=== PATIENT | male | born 1965 | race Caucasian/White ===

== ENCOUNTER → 2017-06-27 03:43 | Emergency (ER) | payer BC ==
[~2017-06-27 03:43] MED LIST: Aspirin Low Dose CHEW TAB* 81 MG PO ONE; NS 0.9% 1000 ML* 1,000 ML IV ONE
[2017-06-27 04:58] LABS: Hematocrit 42 % (42-52); Mean Corpuscular HGB Conc 34 g/dl (31-36); Mean Corpuscular Hemoglobin 30 pg (27-31); Mean Corpuscular Volume 88 fL (80-94); Mean Platelet Volume 10 um3 (7.4-10.4); Red Cell Distribution Width 14 % (10.5-15); White Blood Count 7.8 10^3/ul (3.5-10.8)
[2017-06-27 05:12] LABS: Albumin 3.9 g/dL (3.2-5.2); BUN/Creatinine Ratio 20.2 (8-20); EGFR African American 109.2 (>60); EGFR Non-African American 84.9 (>60); Globulin 2.5 g/dL (2-4); Total Bilirubin 0.8 mg/dL (0.2-1.0); Total Protein 6.4 g/dL (6.4-8.9)
[2017-06-27 06:46] VITALS: BP 135/84
--- NOTE | 2017-06-27 09:55 | RAD ---
Indication: Dizziness. Sweating. Generalized illness. Comparison: No relevant prior exams available on the [facility] [place] for comparison. Technique: Upright AP 0420 hours Report: Mild airspace consolidation at the LEFT lung base. Negative for volume loss to favor atelectasis. Negative for pleural effusion or pneumothorax. The heart, pulmonary vasculature, and mediastinal contours are unremarkable. IMPRESSION: Airspace consolidation at the LEFT lung base is suspicious for pneumonia.
--- NOTE | 2017-07-09 15:38 | ED ---
Carlos Vincent Thomas, scribed for Tomer Robbins MD on 06/27/17 at 0455 . Dizziness - HPI Summary HPI Summary: The pt is a 52 y/o M presenting to the ED c/o leg cramps, diaphoresis, lightheadedness, and nausea s/p waking up to go to the bathroom at 03:25. The lightheadedness is aggravated and alleviated by nothing. 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 Pt additionally c/o minor HARRELL. Pt denies CP, SOB, difficulty breathing, myalgia, sore throat, rhinorrhea, cough, and nasal congestion. He denies any symptoms of a cold recently. He has not taken any medications today. He is not on any daily medications. PMHx: previously healthy. PSHx: none. SHx: no smoking, daily alcohol use, no illicit drug use. FHx: negative for CAD. He had three beers yesterday at 18:00, which is normal for him. The patient is accompanied by his . 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 Negative: Chest Pain, SOB, Fever, Chills - Allergies/Home Medications Allergies/Adverse Reactions: Allergies Allergy/AdvReac Type Severity Reaction Status Date / Time Codeine Allergy Vomiting Verified 06/27/17 03:50 PMH/Surg Hx/FS Hx/Imm Hx Previously Healthy: No Cardiovascular History: Denies: Hx Myocardial Infarction Sensory History: Denies: Hx Deafness - Surgical History Surgery Procedure, Year, and Place: None Infectious Disease History: No Infectious Disease History: Denies: Traveled Outside the [place] in Last 30 Days - Family History Known Family History: Negative: Cardiac Disease - Social History Alcohol Use: Daily Hx Substance Use: No Substance Use Type: Reports: None Hx Tobacco Use: No Smoking Status (MU): Never Smoked Tobacco Review of Systems Positive: Skin Diaphoresis. Negative: Fever, Chills Negative: Erythema Negative: Sore Throat, Nasal Discharge, Other - NEG: nasal congestion Negative: Chest Pain Negative: Shortness Of Breath, Cough, Other - NEG: difficulty breathing Positive: Nausea. Negative: Abdominal Pain, Vomiting Negative: dysuria, hematuria Positive: Other - POS: leg cramps. Negative: Myalgia, Edema - legs Negative: Rash Neurological: Other - POS: lightheadedness; NEG: dizziness Positive: Headache All Other Systems Reviewed And Are Negative: Yes Physical Exam Vital Signs On Initial Exam: Initial Vitals Temp Pulse Resp BP Pulse Ox 97.6 F 72 16 135/79 97 06/27/17 03:45 06/27/17 03:45 06/27/17 03:45 06/27/17 03:45 06/27/17 03:45 Diagnostics - Vital Signs Vital Signs Temp Pulse Resp BP Pulse Ox 06/27/17 04:19 98 F 72 14 133/78 98 06/27/17 03:45 97.6 F 72 16 135/79 97 - Laboratory Result Diagrams: 06/27/17 04:45 06/27/17 04:45 Lab Statement: Any lab studies that have been ordered have been reviewed, and results considered in the medical decision making process. - Radiology CXR Xray Interpretation: No Acute Changes - No acute disease Radiology Interpretation Completed By: ED Physician - EKG 03:54 Cardiac Rate: NL - 66 BPM EKG Interpretation: Sinus rhythm. No Ectopy. No STEMI. Dizzy Course/Dx - Course Assessment/Plan: The pt is a 52 y/o M presenting to the ED c/o leg cramps, diaphoresis, lightheadedness, and nausea s/p waking up to go to the bathroom at 03:25. The lightheadedness is aggravated and alleviated by nothing. 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 Pt additionally c/o minor HARRELL. Pt denies CP, SOB, difficulty breathing, myalgia, sore throat, rhinorrhea, cough, and nasal congestion. He denies any symptoms of a cold recently. He has not taken any medications today. He is not on any daily medications. PMHx: previously healthy. PSHx: none. SHx: no smoking, daily alcohol use, no illicit drug use. FHx: negative for CAD. He had three beers yesterday at 18:00, which is normal for him. The patient is accompanied by his . In the ED course the patient was given ASA and IV fluids. CXR shows no acute disease. EKG shows sinus rhythm with no STEMI and no ectopy. Two troponins are negative. He was overexerting himself while lying on the floor. He reports no fluid intake recently. He is diagnosed with dehydration and dizziness. He will follow up with his primary care provider in 2-3 days. - Diagnoses Provider Diagnoses: Dehydration, Dizziness Discharge - Discharge Plan Condition: Stable Disposition: HOME Patient Education Materials: Dehydration (ED), Dizziness (ED) Referrals: Remigio Orozco MD [Primary Care Provider] - 2 Days Additional Instructions: Follow up with Dr. Orozco in 2-3 days. Return to the emergency department if you develop any changing or worsening symptoms. The documentation as recorded by the Carlos castillo Thomas accurately reflects the service I personally performed and the decisions made by , Tomer Robbins MD.
== END | disposition home or self-care (01) ==
LOC: ED 03:43
DX: E86.0 Dehydration (principal); R42 Dizziness and giddiness; R11.0 Nausea
CPT/HCPCS: 36415; 71010; 80053; 83605; 84484; 85025; 93005; 96360; 99283; A9270-GY

== ENCOUNTER 2019-01-06 14:10 | Observation (INO) | payer BC ==
[2019-01-06 18:55] LABS: ABS Basophils 0.1 10^3/ul (0-0.2); ABS Eosinophils 0.3 10^3/ul (0-0.6); ABS Lymphocytes 1.7 10^3/ul (1.0-4.8); ABS Monocytes 0.7 10^3/ul (0-0.8); ABS Neutrophils 5.7 10^3/ul (1.5-7.7); ABS Nucleated RBC 0 10^3/ul; Eosinophil % 3.1 %; Hematocrit 43 % (36-46); Hemoglobin 14.5 g/dL (14.0-18.0); Lymphocyte % 20.5 %; Mean Corpuscular HGB Conc 34 g/dL (31-36); Mean Corpuscular Hemoglobin 30 pg (27-31); Mean Corpuscular Volume 88 fL (80-94); Mean Platelet Volume 9.6 fL (7.4-10.4); Nucleated Red Blood Cells % 0; Platelet Count 194 10^3/uL (150-450); Red Blood Count 4.85 10^6 /uL (4.18-5.48); Red Cell Distribution Width 14 % (10.5-15); White Blood Count 8.5 10^3/uL (3.5-10.8)
--- NOTE | 2019-01-06 18:59 | ED ---
Throat Pain/Nasal Congestion - HPI Summary HPI Summary: A 53 y/o M [place] [facility] [place] to ED with c/o blurred vision onset approx 11:30a and lasting for 45 minutes. 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 He looked with each eye individually, and it was occurring bilaterally and in the middle of his field of vision. He describes the blurriness as opaqueness, as seeing "lightning bolts." Associated sx: diaphoresis but he feels that was from cooking. Denies eye pain, HARRELL, weakness, dizziness, confusion, changes in speech. He went to the eye doctor last week. He denies neurological history ( seizures, convulsions.) Takes allergy medications. - History of Current Complaint Chief Complaint: EDEyeProblem Time Seen by Provider: 01/06/19 18:54 Hx Obtained From: Patient Onset/Duration: Sudden Onset, Lasting Minutes - ~ 45 mins, Resolved Severity: Moderate - Allergies/Home Medications Allergies/Adverse Reactions: Allergies Allergy/AdvReac Type Severity Reaction Status Date / Time codeine Allergy Vomiting Verified 01/06/19 18:59 Home Medications: Home Medications Loratadine/Pseudoephedrine [Claritin-D 24 Hour 10-240 mg] 1 tab PO DAILY PRN [History Confirmed 01/06/19] PMH/Surg Hx/FS Hx/Imm Hx Previously Healthy: Yes Cardiovascular History: Denies: Hx Myocardial Infarction Sensory History: Denies: Hx Deafness Neurological History: Denies: Hx Seizures - Surgical History Surgery Procedure, Year, and Place: None Infectious Disease History: No Infectious Disease History: Denies: Traveled Outside the [place] in Last 30 Days - Family History Known Family History: Negative: Cardiac Disease - Social History Occupation: Employed Part-time, Retired Lives: With Family Alcohol Use: Daily Hx Substance Use: No Substance Use Type: Reports: None Hx Tobacco Use: No Smoking Status (MU): Never Smoked Tobacco Review of Systems Positive: Skin Diaphoresis. Negative: Fever Eyes: Other - neg: eye pain Positive: Blurred Vision Neurological: Other - neg: dizziness, confusion Negative: Headache, Weakness, Slurred Speech All Other Systems Reviewed And Are Negative: Yes Physical Exam - Summary Physical Exam Summary: Appearance: Well-appearing, Well-nourished, lying in bed comfortably Skin: Warm, dry, no obvious rash Eyes: sclera anicteric, no conjunctival pallor ENT: mucous membranes moist, pharynx appears normal Neck: Supple, nontender Respiratory: Clear to auscultation, no signs of respiratory distress Cardiovascular: Normal S1, S2. No murmurs. Normal distal pulses in tibial and radial bilaterally. Abdomen: Soft, nontender, normal active bowel sounds present Musculoskeletal: Normal, Strength/ROM Intact, Motor function in all 4 extremities is normal and symmetric. There is no rigidity or tremor noted. Neurological: A&Ox3, awake and alert, mentation is normal, speech is fluent and appropriate, Level of consciousness nml. The patient is alert and oriented. Cranial nerves are grossly intact. Gaze is conjugate and without nystagmus. Peripheral vision is intact to confrontation. There are no gross sensory abnormalities to light touch. There is no truncal or fine motor ataxia. Gait is normal. Psychiatric: affect is normal, does not appear anxious or depressed Triage Information Reviewed: Yes Vital Signs On Initial Exam: Initial Vitals Temp Pulse Resp BP Pulse Ox 97.8 F 82 18 141/89 99 01/06/19 14:14 01/06/19 14:14 01/06/19 14:14 01/06/19 14:14 01/06/19 14:14 Vital Signs Reviewed: Yes - Chavo Coma Scale Best Eye Response: 4 - Spontaneous Best Motor Response: 6 - Obeys Commands Best Verbal Response: 5 - Oriented Coma Scale Total: 15 Diagnostics - Vital Signs Vital Signs Temp Pulse Resp BP Pulse Ox 01/06/19 18:20 98.2 F 71 18 140/95 98 01/06/19 15:57 98.1 F 79 17 122/89 97 01/06/19 14:14 97.8 F 82 18 141/89 99 - Laboratory Lab Results: Lab Results 01/06/19 Range/Units 18:48 WBC 8.5 (3.5-10.8) 10^3/uL RBC 4.85 (4.18-5.48) 10^6 /uL Hgb 14.5 (14.0-18.0) g/dL Hct 43 (36-46) % MCV 88 (80-94) fL MCH 30 (27-31) pg MCHC 34 (31-36) g/dL RDW 14 (10.5-15) % Plt Count 194 (150-450) 10^3/uL MPV 9.6 (7.4-10.4) fL Neut % (Auto) 67.3 % Lymph % (Auto) 20.5 % Williamson % (Auto) 8.2 % Eos % (Auto) 3.1 % Baso % (Auto) 0.9 % Absolute Neuts (auto) 5.7 (1.5-7.7) 10^3/ul Absolute Lymphs (auto) 1.7 (1.0-4.8) 10^3/ul Absolute Monos (auto) 0.7 (0-0.8) 10^3/ul Absolute Eos (auto) 0.3 (0-0.6) 10^3/ul Absolute Basos (auto) 0.1 (0-0.2) 10^3/ul Absolute Nucleated RBC 0 10^3/ul Nucleated RBC % 0 Result Diagrams: 01/06/19 18:48 01/06/19 18:48 Lab Statement: Any lab studies that have been ordered have been reviewed, and results considered in the medical decision making process. - CT BRAIN CT Interpretation Completed By: Radiologist Summary of CT Findings: IMPRESSION: NO ACUTE INTRACRANIAL PATHOLOGY. ED provider has reviewed this report. HEAD CTA CT Interpretation Completed By: Radiologist Summary of CT Findings: IMPRESSION: No acute findings. ED provider has reviewed this report. - EKG 1647 Cardiac Rate: NL - 73 bpm EKG Rhythm: Sinus Rhythm ST Segment: Normal Ectopy: None Summary of EKG Findings: NSR at 73 BPM, P waves, QRS complex, and T waves are within normal limits, T waves and intervals are normal, no ischemic changes. Re-Evaluation - Re-Evaluation 1 Re-Evaluation Time: 19:18 Change: Unchanged 2 Re-Evaluation Time: 19:34 Change: Unchanged Comment: Discussing consult with Dr. Diaz, neuro. 3 Re-Evaluation Time: 21:30 Change: Unchanged Comment: Discussing CTA results with pt. EENT Course/Dx - Course Assessment/Plan: Pt is a 53 y/o M presenting with episode of blurred vision onset approx 11:30am, lasting for 45 minutes. 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 He looked with each eye individually, and it was occurring bilaterally and in the middle of his field of vision. Denies eye pain, HARRELL, weakness, dizziness, confusion, changes in speech. He went to the eye doctor last week. He denies neurological history (seizures, convulsions.) Medications discussed. Labs are within normal limits. EKG is NSR. Brain CT shows no acute intracranial pathology. Head CTA shows no acute findings. UA results show elevated specific gravity, 1+ blood and squamous epithelia present. Consulted with Dr. Diaz, neuro, who says dx is unclear, assume TIA. Consulted with Dr. Pan, hospitalist, who will admit patient. - Diagnoses Provider Diagnoses: Transient ischemic attack - Provider Notifications Discussed Care Of Patient With: Ingrid Diaz - neuro Time Discussed With Above Provider: 19:14 Instructed by Provider To: Other - Diagnosis unclear, for now assume TIA. Discharge - Sign-Out/Discharge Documenting (check all that apply): Patient Departure - D/C Patient Received Moderate/Deep Sedation with Procedure: No - Discharge Plan Condition: Fair Disposition: ADMITTED TO [facility] Referrals: Remigio Orozco MD [Primary Care Provider] - - Billing Disposition and Condition Condition: FAIR Disposition: Admitted to [facility] - Attestation Statements Document Initiated by Scribe: Yes Documenting Scribe: Sage Robles Provider For Whom Horace is Documenting (Include Credential): Dr. Ty Stephenson MD Scribe Attestation: Sage Vincent, scribed for Dr. Ty Stephenson MD on 01/07/19 at 0229. Scribe Documentation Reviewed: Yes Provider Attestation: The documentation as recorded by the Sage castillo accurately reflects the service I personally performed and the decisions made by me, Dr. Ty Stephenson MD Status of Scribe Document: Viewed Consult Consult: 2134: Consulted with Dr. Pan, hospitalist Will admit patient.
[2019-01-06 19:19] LABS: Albumin 4.2 g/dL (3.2-5.2); Albumin/Globulin Ratio 1.7 (1-3); BUN/Creatinine Ratio 18.9 (8-20); Calcium 9.1 mg/dL (8.6-10.3); EGFR African American 107.6 (>60); Globulin 2.5 g/dL (2-4); Potassium 4.3 mmol/L (3.5-5.0); Total Bilirubin 0.6 mg/dL (0.2-1.0); Total Protein 6.7 g/dL (6.4-8.9)
[2019-01-06 19:20] LABS: Activated Partial Thrombo Time 32.1 seconds (26.0-36.3); INR 0.98 (0.77-1.02)
[2019-01-06] MEDS ORDERED: Iohexol 350* (CONTRAST) 500 ML MDV IV ONE (19:51)
[2019-01-06] MEDS ORDERED: Aspirin 81 mg CHEW TAB* 81 MG TAB.CHEW PO ONE (21:38)
[2019-01-06 21:55] LABS: Urine Appearance Clear; Urine Bacteria Absent (Absent); Urine Bilirubin Negative (Negative); Urine Blood 1+ (Negative); Urine Color Yellow; Urine Glucose Negative (Negative); Urine Ketones Negative (Negative); Urine Nitrite Negative (Negative); Urine Protein Negative (Negative); Urine Red Blood Cell Trace(0-2/hpf) (Absent); Urine Specific Gravity > 1.060 (1.010-1.030); Urine Squamous Epithelial Cell Present (Absent); Urine Urobilinogen Negative (Negative); Urine White Blood Cell Absent (Absent)
[2019-01-07] MEDS ORDERED: Acetaminophen TAB* 325 MG PO PRN (03:40)
[2019-01-07 03:57] LABS: HDL Cholesterol 37.8 mg/dL
--- NOTE | 2019-01-07 06:28 | HP ---
CC: Dr. Orozco * HISTORY AND PHYSICAL: DATE OF ADMISSION: 01/07/19 TIME OF EVALUATION: 3:30 a.m. PRIMARY CARE PROVIDER: Dr. Orozco. CHIEF COMPLAINT: "I had blurry vision." HISTORY OF PRESENT ILLNESS: Mr. Yancey is a 53-year-old male with a past medical history of obesity and seasonal allergies, who presents to the emergency room with complaints of visual change. 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 He covered each eye and both eyes were doing the same thing. He denies headache, nausea, vomiting, chest pain, palpitations, any other focal weakness or sensory loss. He went to [facility] initially and then came to the emergency room. He states the whole episode lasted 45 minutes. He vision returned to normal, and he has had no recurrent symptoms. He denies any prior episodes like this. PAST MEDICAL HISTORY: 1. Seasonal allergies. 2. Obesity with a BMI of 46. MEDICATION: Loratadine-D 1 tablet p.o. daily as needed for allergies. ALLERGIES: No known drug allergies. FAMILY HISTORY: The patient's mother was a smoker and of cancer. His father is alive and has a history of COPD. SOCIAL HISTORY: The patient denies a history of tobacco or drug use. He says occasionally he drinks beer. Surrogate decision maker is his , Jaelyn Yancey , phone number is [phone]. REVIEW OF SYSTEMS: A 14-point review of systems was performed. All the pertinent negative and positive findings are in the HPI. PHYSICAL EXAMINATION GENERAL: The patient is a pleasant, obese, middle aged gentleman, lying in bed , in no acute distress. VITAL SIGNS: Temperature 98.2, heart rate is 77, respiratory rate is 18, oxygen saturation is 97% on room air, blood pressure is 138/81. HEENT: Pupils are equal, reactive to light. Extraocular movements are intact. Moist mucous membranes. CHEST: Breath sounds are present bilaterally with no added sounds. CVS: S1 and S2. Regular rate and rhythm. ABDOMEN: Obese. Bowel sounds are present. EXTREMITIES: No edema. NEUROLOGIC: He is alert and oriented x3. Cranial nerves are II through XII are grossly intact. Able to move all 4 extremities with strength 5/5 in all 4. Sensation is intact. LABORATORY AND IMAGING DATA: The patient had a CBC that showed WBC of 8.5, hemoglobin of 14.5, hematocrit of 43, platelets of 195. INR is 0.8. Chemistry showed a sodium of 138, potassium 4.3, chloride of 104, bicarb of 29, BUN 17, creatinine of 0.9, glucose of 95, calcium 9.1. LFTs are normal. Troponin was 0. Urinalysis showed 1+ blood and squamous epithelial cells. CT of the brain without contrast showed no acute intracranial pathology. CTA of the head and neck showed no acute findings. EKG done on 01/06/19 at 1647 shows sinus rhythm at 73 beats per minute with no ST-T changes. No significant change when compared to his prior EKG from . ASSESSMENT AND PLAN: Mr. Yancey is a 53-year-old gentleman with past medical history of obesity and seasonal allergies, who presented to the emergency room after 45 minutes of visual changes. 1. Visual changes. The emergency room provider discussed the case with Neurology and there is a concern for a TIA. The way the patient describes the symptoms is very peculiar in what he says there was bilateral visual change in a sense that he could read the cards but it felt like he was skipping a line. The patient will be admitted as observation to the telemetry floor. I am going to check his lipid profile. I am going to order an echocardiogram and neurology consultation was requested with Dr. Diaz. He will be monitored with neuro checks, but at the time of my evaluation, he has no neurological deficits. He received an aspirin in the emergency room and we will continue that. 2. DVT prophylaxis: The patient has a score of 2 on the DVT prophylaxis risk assessment guide and he will have SCDs while in bed. 3. Code status is full. TIME SPENT: Approximately 45 minutes was spent on patient interview, medical records review, physical examination to complete the admission; more than half the time spent [id number] with the patient and coordination of care. [id number]/CPS #: [id number] KIERAN
[2019-01-07] MEDS: Aspirin EC TAB* 81 MG TAB.EC PO SCH (08:09)
--- NOTE | 2019-01-07 11:28 | PN ---
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 States that this occurred with both eyes for appx 45 minutes. He went to [facility], where symptoms disappeared without intervention. He was then sent to ER for work up. Here, he continues to be asymptomatic. Pt states that he has no PMHx, except allergies and obesity. He notes that he recently traveled via airplane from [place]. Currently without vision changes; had recent eye doctor appointment and was cleared. Denies CP, SOB, palpitations. Objective Active Medications: Acetaminophen (Tylenol Tab*) 650 mg PO Q6H PRN Aspirin (Aspirin Ec Tab*) 81 mg PO DAILY STARR Vital Signs: Temp Pulse Resp BP Pulse Ox 97.4 F 73 16 134/71 97 01/07/19 15:45 01/07/19 15:45 01/07/19 15:45 01/07/19 15:45 01/07/19 15:45 Oxygen Devices in Use Now: None Appearance: Pt is sitting up in bed. He appears well and in no acute distress. Eyes: No Scleral Icterus, PERRLA Ears/Nose/Mouth/Throat: NL Teeth, Lips, Gums, Clear Oropharnyx, Mucous Membranes Moist, - - Tongue midline Neck: NL Appearance and Movements; NL JVP, Trachea Midline Respiratory: Symmetrical Chest Expansion and Respiratory Effort, Clear to Auscultation Cardiovascular: NL Sounds; No Murmurs; No JVD, RRR, No Edema, - - Tele: RRR Abdominal: NL Sounds; No Tenderness; No Distention, No Hepatosplenomegaly Lymphatic: No Cervical Adenopathy Extremities: No Edema, No Clubbing, Cyanosis, - - RLE with fluid at anterior knee. Neurological: Alert and Oriented x 3, NL Muscle Strength and Tone Result Diagrams: 01/06/19 18:48 01/06/19 18:48 Additional Lab and Data: Lab Results 01/06/19 Range/Units 18:48 WBC 8.5 (3.5-10.8) 10^3/uL RBC 4.85 (4.18-5.48) 10^6 /uL Hgb 14.5 (14.0-18.0) g/dL Hct 43 (36-46) % MCV 88 (80-94) fL MCH 30 (27-31) pg MCHC 34 (31-36) g/dL RDW 14 (10.5-15) % Plt Count 194 (150-450) 10^3/uL MPV 9.6 (7.4-10.4) fL Neut % (Auto) 67.3 % Lymph % (Auto) 20.5 % [place] % (Auto) 8.2 % Eos % (Auto) 3.1 % Baso % (Auto) 0.9 % Absolute Neuts (auto) 5.7 (1.5-7.7) 10^3/ul Absolute Lymphs (auto) 1.7 (1.0-4.8) 10^3/ul Absolute Monos (auto) 0.7 (0-0.8) 10^3/ul Absolute Eos (auto) 0.3 (0-0.6) 10^3/ul Absolute Basos (auto) 0.1 (0-0.2) 10^3/ul Absolute Nucleated RBC 0 10^3/ul Nucleated RBC % 0 Assess/Plan/Problems-Billing Assessment: 53yom with PMHx seasonal allergies, obesity who presents with b/l blurred vision. - Patient Problems (1) Blurred vision Comment: -Symptoms resolved without return; Head CT WNL, Head/neck CTA with no acute findings -Neurology consulted; thank you for recommendations -US b/l LE and ECHO pending (2) Hyperlipidemia Comment: -LDL elevated to 115; discussed use of statin medication for lowering of LDL. Pt decided to defer for now and discuss with PCP on follow-up after discharge (3) Knee swelling Comment: -Swelling at anterior knee RLE occurred after kneeling for extended period -Likely prepatellar bursitis- Tylenol ordered prn pain (4) DVT prophylaxis Comment: -Heparin SQ ordered (5) Full code status Status and Disposition: Observation. Discharge when stable.
[2019-01-07 15:42] LABS: Activated Partial Thrombo Time 31.4 seconds (26.0-36.3); INR 0.96 (0.77-1.02)
--- NOTE | 2019-01-07 16:15 | CONS ---
CC: Dr. Orozco CONSULTATION REPORT: DATE OF CONSULT: 01/07/19 REASON FOR CONSULT: Bilateral vision loss. HISTORY OF PRESENT ILLNESS: Tank Yancey is a 53-year-old right-handed gentleman with remote histo ry of bilateral severe headaches, now presents with 45 minutes of bilateral vision changes. He is re tired; however, tells me he works 3 jobs and was working his job as a part-time cook at a diner yeste rday when he developed vision changes. When he was trying to read the tags for orders, he was notici ng he could see vision on every other line. He described his vision as blurry. When he went outside to get fresh air, this continued. He noted the lines were diagonal, shimmery and moving. He decide d to go to the [facility] and his symptoms improved as walked in the door. He was sent t o the emergency room for further evaluation. He denies any headache. There was no numbness or weakn ess of arms or legs or change in vision, coordination or gait. He does have a history of migraines w hen he was in his 20s, which were bilateral pounding headaches with no vision changes to his memory. He has 3 children and 2 out of 3 of them have migraines with visual symptoms. He has been more impatient lately. He sleeps about 4 to 5 hours at night. He recently got back from visiting his father and was on plane flights that were up to 4 hours. 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 PAST MEDICAL HISTORY: Includes seasonal allergies and obesity with BMI of 46. CURRENT MEDICATIONS: Include: 1. Acetaminophen 650 mg p.o. q.6 hours p.r.n. pain or fever. 2. Aspirin 81 mg p.o. daily. 3. Heparin, which was just started 5000 units subcu every 12 hours. Of note, at home, he takes Claritin-D extended release every day. ALLERGIES: He has allergies to CODEINE. FAMILY HISTORY: Includes mother who of cancer, which he believes was lung cancer, she was a hea vy smoker; father who is 80 years old with congestive heart failure and COPD; brother who had seizure s in his late 40s; sister who had mental health issues; and a sister and brother who are both healthy . SOCIAL HISTORY: He does not smoke. He occasionally drinks alcohol. He denies any use of illicit lemos bstances and has never been exposed to cocaine or heroin. He lives with his , Jaelyn. They have 3 children. REVIEW OF SYSTEMS: Vision changes were as noted above. There has been no change in speech, change i n hearing, difficulty swallowing. He denies any numbness or weakness of arms or legs, change in prabhjot l or bladder habits, change in coordination or gait. There has been joint pain in the right knee aft er laying sheetrock. There have been no recent rashes. There has been no weight loss, drenching nigh t sweats, or high fevers for unknown reason. There are no psychiatric diagnoses. He just saw his op hthalmologist and was given a clean bill of health. There have been no symptoms of neuropathy such a s abnormal sensation in his feet. There has been no trauma or acute onset of neck pain. PHYSICAL EXAM: His most recent temperature was 98.4 degrees Fahrenheit measured temporally, his puls e was 73, respiratory rate was 21, saturation was 96%, and blood pressure was 123/73. He had a regul ar cardiac rhythm. His lungs were clear to auscultation. There was no carotid bruit. He had full e xtraocular movements with no nystagmus, full cabello to confrontation. His facial expression, sensati on and hearing were equal. Palate was upgoing. Tongue was midline. Sternocleidomastoid and trapeziu s were 5/5 in strength. His pupils were equal and responsive to light and his fundi were flat. Ther e was no pronator drift. He gave good strength in his upper and lower extremities with normal finger -to-nose and [id number] movements. Vibration sensation was decreased at the large toes by 10 secon ds. Proprioception was intact. There was no asymmetry to pinprick, cold, or light touch. Reflexes were 2+ and symmetric in the upper and lower extremities with flexor response of the toes. His Rombe rg was minimally wobbly. He could stand on his heels and his toes and perform tandem gait without di fficulty. DIAGNOSTIC STUDIES/LAB DATA: Data includes CT of the brain, which was reviewed directly, which showe d no significant pathology. CTA of the brain and neck, which was also read and showed no evidence of significant stenosis and no evidence of dissection. Data includes a lipid profile, which showed a total cholesterol of 176, LDL was 115, triglycerides 11 5, HDL was 37.8. His electrocardiogram showed normal sinus rhythm, please see report for further details. His CBC was within normal limits. His INR and PTT were normal. His complete metabolic panel was wit hin normal limits. His urine showed elevated specific gravity, 1+ blood, and present squamous epithe lial cells. IMPRESSION AND PLAN: Mr. Yancey is a 53-year-old right-handed gentleman with a history of severe head aches in his 20s, who now has bilateral vision changes. The bilateral loss of vision described in th e emergency room raised question of stroke. What is described today is more of a positive phenomenon which certainly could be ocular migraine; however, I cannot rule out transient ischemic attack or str sonny. Ocular migraine is a diagnosis of exclusion. His CTA of the brain and neck was negative for any occlusion. There were no findings of dissection o r history of dissection. He has been on a flight recently and his right leg is larger than left. We will check ultrasound and he is being started on DVT prophylaxis. He also had trauma to his right k nee, which might result in increased risk of deep venous thrombosis as well as edema. He was recentl y on a flight, which gives him risk. He is on telemetry and echocardiogram with bubble study has bee n ordered. In regard to his lipid profile, he does have elevated LDL and certainly after stroke, we would sugges t treatment. It is unclear whether this represents stroke and the patient would like to discuss this further with primary care. We will hold off on treatment out of the patient's preference. He has b een started on aspirin. If no further symptoms and with evaluation for deep venous thrombosis and paradoxical emboli and fransisca tment accordingly, if he remains stable, we could consider potential discharge to home tomorrow; krishnamurthy davin, this will be dependent on clinical symptomatology. TIME SPENT: Over an hour and a half was spent in patient care. Education was given to the patient a nd his regarding diagnosis and differential diagnosis, previous workup and further workup. All questions were answered. [id number]/[facility] #: [id number]
[2019-01-07] MEDS: Heparin VIAL(*) 5000 UNITS/ML VIAL (FIVE THOUSAND) SUBCUT SCH (22:10)
[2019-01-08 06:54] LABS: Hematocrit 43 % (36-46); Hemoglobin 14.6 g/dL (14.0-18.0); Mean Corpuscular HGB Conc 34 g/dL (31-36); Mean Corpuscular Hemoglobin 30 pg (27-31); Mean Corpuscular Volume 88 fL (80-94); Mean Platelet Volume 10.1 fL (7.4-10.4); Platelet Count 167 10^3/uL (150-450); Red Blood Count 4.93 10^6 /uL (4.18-5.48); Red Cell Distribution Width 13 % (10.5-15); White Blood Count 6.7 10^3/uL (3.5-10.8)
[2019-01-08 07:11] LABS: BUN/Creatinine Ratio 16.3 (8-20); Calcium 9.2 mg/dL (8.6-10.3); EGFR African American 104.9 (>60); EGFR Non-African American 86.7 (>60); Potassium 4.5 mmol/L (3.5-5.0)
[2019-01-08] MEDS: Aspirin EC TAB* 81 MG TAB.EC PO SCH (08:05)
[2019-01-08] MEDS: Heparin VIAL(*) 5000 UNITS/ML VIAL (FIVE THOUSAND) SUBCUT SCH (08:06)
[2019-01-08] MEDS ORDERED: Perflutren Lipid Microsphere* 3 ML VIAL ONE (12:04)
--- NOTE | 2019-01-08 12:22 | PN ---
Progress Note - Progress Note Date of Service: 01/08/19 Note: 53-year-old gentleman with history of bilateral vision changes admitted for work up of TIA. He denies repeat symptoms, or any new symptoms of change in vision, numbness or weakness, change in coordination or gait. He denies chest pain, chest pressure , palpitation, shortness of breath. Active Medications Generic Name Dose Route Start Last Admin Trade Name Freq PRN Reason Stop Dose Admin Acetaminophen 650 mg 01/07/19 03:40 Tylenol Tab* PO Q6H PRN pain/fever Aspirin 81 mg 01/07/19 09:00 01/08/19 08:05 Aspirin Ec Tab* PO 81 mg DAILY STARR Administration Heparin Sodium (Porcine) 5,000 units 01/07/19 21:00 01/08/19 08:06 Heparin Vial(*) SUBCUT 5,000 units Q12HR STARR Administration Examination: Temp Pulse Resp BP Pulse Ox 97.7 F 71 20 124/78 97 01/08/19 08:00 01/08/19 08:00 01/08/19 08:00 01/08/19 08:00 01/08/19 08:00 Cardiac rhythm was regular with no murmur, no carotid bruit. He was awake, alert, oriented, with no dysarthria. He had full extraocular movement, full cabello to confrontation. Her facial expression and sensation were symmetric, palate was upgoing, tongue was midline , There was no pronator drift with full strength in the upper and lower extremities with normal coordination with finger to nose and heel to zambrano movements. Reflexes were 1+ and symmetric in the arms and legs. His romberg was negative, with normal tandem gait. He could walk on his heels and toes without difficulty. His stance was normal. Data: Negative ultrasound of lower extremities. Echocardiogram is pending. Abnormal Lab Results 01/07/19 01/08/19 01/08/19 15:22 06:28 06:28 WBC 6.7 RBC 4.93 Hgb 14.6 Hct 43 MCV 88 MCH 30 MCHC 34 RDW 13 Plt Count 167 MPV 10.1 INR (Anticoag Therapy) 0.96 APTT 31.4 Sodium 138 Potassium 4.5 Chloride 103 Carbon Dioxide 30 Anion Gap 5 BUN 15 Creatinine 0.92 Est GFR ( Amer) 104.9 Est GFR (Non-Af Amer) 86.7 BUN/Creatinine Ratio 16.3 Glucose 107 H Calcium 9.2 Impression: 53-year-old gentleman with history of bilateral vision change of unclear etiology. He has had no further symptoms and is stable on history and physical examination. There was no evidence of DVT on ultrasound of the legs. If echocardiogram is negative for pathology, will plan to discharge to home with follow up in 2-3 weeks with me. Discussed MRI brain as an outpatient. He will continue on aspirin 81 mg a day. Differential does include visual migraine. > 30 minutes was spent in direct patient care, > 50% of the time was spent in education and counseling regarding symptoms of stroke, what he would do if he has symptoms (call 911), differential diagnosis, plan for further work up and care.
[2019-01-08 13:13] VITALS: BP 135/79
--- NOTE | 2019-01-08 14:19 | ECHO ---
Patient: JELANI RASMUSSEN [facility] Rec#: [id number] : 1965 Date: 01/08/2019 Age: 53y Height: 193 cm / 76.0 in Weight: 137 kg / 301.9 lbs Sex: M BSA: 2.6 Room#: 452 Admit Date#: 01/07/2019 Type: Inpatient Referring: Latasha Mccloud MD Reading: Deb Bro MD Book Mender: Chanelle García RN RDCS CC: Remigio Orozco MD Transthoracic Echocardiogram Indication: TIA BP: 122/75 HR: 72 Rhythm: NSR Findings History: Obesity, seasonal allergies Technical Comments: The study is technically limited due to patient body habitus. Parasternal windows best. Left Ventricle: The left ventricular chamber size is normal. Mild concentric left ventricular hypertrophy is observed. Global left ventricular wall motion and contractility are within normal limits. Left ventricular systolic function is at the lower limits of normal. The estimated ejection fraction is 50-55%. There is no consistent Doppler evidence of clinically significant diastolic dysfunction. Left Atrium: The left atrial chamber size is normal. Right Ventricle: The right ventricle is slightly dilated. The right ventricular global systolic function is low normal. Right Atrium: The right atrial cavity size is normal. A patent foramen ovale is not demonstrated with color Doppler and agitated contrast. Aortic Valve: The aortic valve is trileaflet. Systolic excursion of the aortic valve is normal. There is no evidence of aortic regurgitation. There is no evidence of aortic stenosis. Mitral Valve: The mitral valve leaflets are mildly thickened. There is no evidence of mitral regurgitation. There is no evidence of mitral stenosis. Tricuspid Valve: The tricuspid valve leaflets are normal. There is no evidence of tricuspid valve regurgitation. There is no tricuspid stenosis. Pulmonic Valve: The pulmonic valve structure is not well visualized. There is trace to mild pulmonic regurgitation. There is no pulmonic stenosis. Pericardium: There is no significant pericardial effusion. Aorta: There is no dilatation of the ascending aorta. There is no dilatation of the aortic arch. There is no dilation of the aortic root. Pulmonary Artery: The main pulmonary artery is not well visualized. Venous: The inferior vena cava appears normal in size. There is a greater than 50% respiratory change in the inferior vena cava dimension. Contrast: Normal saline was used as contrast for the bubble study. Images 59 and 60. Definity was also used. A total of 4 ml of diluted Definity was given to enhance endocardial border definition. Conclusions The study is technically limited due to patient body habitus. Parasternal windows best. Mild concentric left ventricular hypertrophy is observed. Left ventricular systolic function is at the lower limits of normal. The estimated ejection fraction is 50-55%. The right ventricular global systolic function is low normal. No evidence of a patent foramen ovale using saline bubble contrast, coloer and 2D echo, but sub optiomal imaging. All valves show normal function. No prior echo to compare. Measurements Name Value Normal Range RVIDd (AP) 2D 3.1 cm (0.9 - 2.6) RVDdMajor (2D) 3.9 cm (2.2 - 4.4) RAd ISD 4CH 3.7 cm (3.4 - 4.9) RA (A4C)W 4 cm (2.9 - 4.6) IVSd (2D) 1.2 cm (0.6 - 1) LVPWd (2D) 1.2 cm (0.6 - 1) LVIDd (2D) 4.6 cm (3.6 - 5.4) LVIDs (2D) 3.2 cm - LV FS (2D) 30 % (25 - 45) Aortic Annulus 2.2 cm (1.4 - 2.6) Ao root diameter (2D) 3.3 cm (2.1 - 3.5) Ascending Ao 2.8 cm (2.1 - 3.4) Aortic arch 2.6 cm (1.8 - 3.4) LA dimension (AP) 2D 3.5 cm (2.3 - 3.8) LAd ISD 4CH 4.1 cm (2.9 - 5.3) LA ISD 4CH W 4.2 cm (2.5 - 4.5) Name Value Normal Range LA ESV BP (A/L) index 20.2 ml/m2 - Name Value Normal Range MV E-wave Vmax 0.64 m/sec - MV deceleration time 169 msec - MV A-wave Vmax 0.63 m/sec - MV E:A ratio 1 ratio - LV septal e' Vmax 0.07 m/sec - LV lateral e' Vmax 0.09 m/sec - LV E:e' septal ratio 9.1 ratio - LV E:e' lateral ratio 7.1 ratio - Name Value Normal Range AV Vmax 1 m/sec - AV VTI 21.3 cm - AV peak gradient 4 mmHg - AV mean gradient 3 mmHg - LVOT Vmax 0.85 m/sec - LVOT VTI 18.7 cm - LVOT peak gradient 3 mmHg - LVOT mean gradient 2 mmHg - DENISE Vmax 0.64 m/sec - Name Value Normal Range IVC diameter 2 cm - Name Value Normal Range PV Vmax 0.8 m/sec -
--- NOTE | 2019-01-08 23:00 | DS ---
DISCHARGE SUMMARY: DATE OF ADMISSION: 01/07/19 DATE OF DISCHARGE: 01/08/19 PRIMARY CARE PROVIDER: Remigio Orozco MD. NEUROLOGIST: Ingrid Diaz MD. ATTENDING PHYSICIAN: Irma Hager MD * (dictated by NIKKI Becerril ). PRIMARY DIAGNOSIS: Vision changes, transient. SECONDARY DIAGNOSES: 1. Seasonal allergies. 2. Obesity. STUDIES WHILE IN THE HOSPITAL: Brain CT on 01/06/19, impression: No acute intracranial pathology. Head and neck CTA on 01/06/19, impression: No acute findings. Transthoracic echocardiogram on 01/08/19: Conclusion: The study is technically limited due to patient body habitus, parasternal windows best. Mild concentric left ventricular hypertrophy is observed. Left ventricular systolic function is at the lower limits of normal. The estimated ejection fraction is 50% to 55%. The right ventricular global systolic function is low normal. No evidence of a patent foramen ovale using saline bubble contrast, color and 2D echo, but suboptimal imaging. All valves show normal function. No prior echo to compare. Venous Doppler study on 01/07/19, impression: No acute findings. No evidence of left or right lower extremity deep vein thrombosis. DISCHARGE MEDICATIONS: Home Medication: Loratadine/pseudoephedrine 1 tablet p.o. daily. [place] Medication: Aspirin 81 mg p.o. daily. HISTORY OF PRESENT ILLNESS/HOSPITAL COURSE: Mr. Yancey is a 53-year-old male with a past medical history as described above who presented to the ER with complaints of vision changes. He states that he was cooking at work and when looking at an order ticket and noticed that he could only read every other line as the rest was blurred. It is noted that he recently went to the eye [facility] and received a clean bill of health in terms of vision. He notes that this was occurring with each eye, stating that he checked them separately. He denied any other symptoms at the time. The patient states that this lasted approximately 45 minutes. He sought medical attention at [facility]. His symptoms went away without intervention while he was at [facility]. He was then referred to the emergency room, where he received a full workup and the hospitalist team admitted him. Since admission, he has not had a return of symptoms. Neurology was consulted as there was a concern for TIA. It is noted that the patient did have a recent airplane flight. It was also noted that the patient has a prepatellar bursitis in the right knee that is nontender, but mildly irritating. This prompted an ultrasound of the lower extremities for DVT, which was negative bilaterally. Echo was ordered to search for a PFO. This test was negative. The patient was on telemetry throughout his stay and was found to be in normal sinus rhythm throughout with occasional PVCs. CTA of the head and neck as well as CT of the brain was within normal limits. It is noted that the patient's LDL cholesterol is elevated at 115. This was discussed and it was recommended that he start a statin medication. He states that he would like to defer to his primary care provider regarding this. Neurology recommended an MRI of the brain, but stated that this could be done as outpatient. Dr. Diaz will follow up with the patient in 2 to 3 weeks. Neurology has suggested a differential diagnosis of ocular migraine. Again, it is noted that the patient had no symptoms throughout his hospital stay, and he continues to deny symptoms at discharge. He denies chest pain, shortness of breath, abdominal pain, nausea, vomiting, diarrhea. He denies headache. He denies any vision changes throughout his stay. He denies weakness in the extremities or face. He denies calf tenderness. Mr. Yancey is stable for discharge. PHYSICAL EXAMINATION: Vital signs: Temperature 98.6 temporally, heart rate 70, respiratory rate 21, oxygen saturation 98% on room air, and blood pressure 135/ 79. Mr. Yancey is a well-developed, well-nourished obese white male who is sitting up in bed. He is in no acute distress. HEENT: Visual cabello are grossly intact. His pupils are equally round and reactive to light. Extraocular movements are intact. Sclerae are without icterus. Hearing is grossly intact. Oral mucous membranes are moist and without lesions. Pharynx is clear. Neck with full range of motion. Thyroid not palpable. There is no lymphadenopathy. Trachea is at midline. Cardiovascular: Regular rate and rhythm with S1, S2 present. There are no murmurs, rubs, or gallops. There is no JVD. Respiratory: Symmetrical chest expansion with no use of accessory muscles. Lungs are clear to auscultation. There are no rhonchi, wheezes, or rubs. Abdomen: Obese. Bowel sounds in all quadrants. Abdomen is soft and nontender to palpation. There is no hepatosplenomegaly. Musculoskeletal: Full range of motion with no pain or deformities. Extremities: Skin is warm and smooth bilaterally. There is no clubbing or cyanosis. There is no edema. Radial and pedal pulses are palpable. The right knee has a collection of fluid on the anterior knee that is nontender to palpation and nonerythematous. Neuro : The patient is awake. He is alert and oriented x3. Cranial nerves are grossly intact. He is able to move all of his extremities. Motor strength is 5 /5 in the upper and lower extremities bilaterally. He has a steady gait with no impairments. DISCHARGE PLAN: Mr. Yancey will be discharged home. ACTIVITY: As tolerated. DIET: Heart healthy. MEDICATIONS: As above. EDUCATION: 1. Follow up with primary care provider in 4 to 7 days. Discussed recent hospitalization, use of statins for LDL of 115. 2. Follow up with Dr. Diaz in 2 to 3 weeks; office will call. 3. MRI of the brain will be performed as outpatient. This will be set up by neurology. 4. Continue aspirin 81 mg daily. 5. Education on stroke signs and symptoms given to patient with orders to call 911 if any of these occur. 6. Return to the ER or nearest hospital if you experience any worsening of symptoms, shortness of breath, lightheadedness, dizziness, chest discomfort, high fevers, chills, night sweats, loss of consciousness, or any other worrisome signs or symptoms. This is a summarized report of a complex medical history and hospital stay. For further details, please see the entire medical record. TIME SPENT: Approximately 35 minutes were spent on this discharge, greater than half of that time was spent [id number] with the patient discussing discharge plans and instructions. NIKKI MUKHERJEE [id number] #: [id number] KIERAN
== END 2019-01-08 15:24 | disposition home or self-care (01) ==
LOC: ED 14:10 → MEDTELE 01-07 03:34
PROVIDERS: ADMIT Internal Medicine; ATTEND Internal Medicine
DX: H53.129 Transient visual loss, unspecified eye (principal); J30.2 Other seasonal allergic rhinitis; E66.9 Obesity, unspecified; Z79.82 Long term (current) use of aspirin; E78.5 Hyperlipidemia, unspecified; R60.9 Edema, unspecified; R42 Dizziness and giddiness; Z88.6 Allergy status to analgesic agent; Z68.42 Body mass index [BMI] 45.0-49.9, adult
CPT/HCPCS: 36415; 70450; 70496; 70498; 80048; 80053; 80061; 81003; 81015; 84484; 85025; 85027; 85610; 85730; 93005; 93306; 93970; 96372; 99284; A9270-GY; C8929; G0378; J1644; Q9967